=== PATIENT | female | born 1980 ===

== ENCOUNTER 2023-06-05 14:47 | Outpatient (AMB) | payer OTHER, SELFPAY ==
--- NOTE | 2023-06-05 14:51 | MHC.OFFVIS ---
Intake Vital Signs 06/05/23 15:08 Height 5 ft 3 in Weight 148 lb 2 oz BMI 26.2 BP 126/74 Blood Pressure Location Lt brachial Position Sitting Pulse 57 Intake Visit Reasons: hemorrhoidal skin lesions, 2nd opinion Intake Note: Patient is seen in office for evaluation and treatment of hemorrhoidal skin lesions, 2nd opinion. Pt c/o: had hemorrhoidectomy done September 2022 @ [facility], admits to bleeding with bm, takes stool softener for constipation with some relief, admits to straining and itching, discomfort Carriage Setter Required: Yes Carriage Setter Language: Management Developer Name: Gretta VIZCARRA Information Interpreted: non-clinical & clinical Emergency Vehicle Operations Instructor: Emergency Vehicle Operations Instructor Present Accompanied by: Self / Same As Patient Medication List - Last Reconciled 06/05/23 by Mitch España MD No Known Home Meds HPI hemorrhoidal skin lesions, 2nd opinion HPI Details 42-year-old female referred for hemorrhoid issues. She had undergone hemorrhoidectomy x3 quadrants last September, in [place]. She describes frequent swelling, and itching of residual hemorrhoids. She also sees small amounts of blood occasionally with wiping. She says that these residual hemorrhoids get in the way of hygiene after bowel movements. She occasionally has some constipation. [facility] Medical History (Updated 06/05/23 @ 15:20 by Mitch España MD) Hemorrhoids with complication Surgical History Hx of hemorrhoidectomy (09/23/22) Hx of colonoscopy Family History (Updated 06/05/23 @ 15:20 by CARMITA Klein) Maternal Aunt Breast cancer Maternal Uncle Colon cancer Paternal Aunt Breast cancer Social History Alcohol intake: current Alcohol intake frequency: holidays/special occasions only Patient Tobacco Use Status: Never used Tobacco Review of Systems Const Denies chills and Denies fever(s) Card Denies chest pain, Denies dyspnea and Denies dyspnea on exertion Resp Denies cough, Denies dyspnea and Denies dyspnea on exertion GI Reports hematochezia and Denies change in bowel habits Denies hematuria Musc Denies back pain and Denies limited range of motion Neuro Denies focal weakness and Denies convulsions Psych Denies depression and Denies mood swings Physical Exam Vital Signs: Last Vital Signs Pulse 57 06/05/23 15:08 BP 126/74 06/05/23 15:08 BMI result Body Mass Index 26.2 Const General: comfortable and no acute distress Orientation/consciousness: patient oriented x3 Neck Neck: Yes no lymphadenopathy Resp Auscultation: clear to auscultation bilaterally Cardio Rhythm: regular rhythm GI Other: Rectal exam - external hemorrhoidal column anteriorly to the left of the midline, very prominent Palpation (GI): Soft to palpation, nontender and no guarding Neuro General: patient oriented x3 Office Procedures Anoscopy She was in sandie-knife position. The anoscope was gently inserted. A full examination of the anal canal was done. Again, there was note of this hemorrhoidal column anteriorly, very prominent, mostly external with a little bit of internal component, no other lesions seen, no fissure, no induration, no blood [id number] Assessment & Plan Assessment & Plan (1) Hemorrhoids with complication: Code(s): K64.8 - Other hemorrhoids Plan: She has this large hemorrhoidal column anteriorly mostly external. She says that this causes difficulty with hygiene after bowel movements along with occasional swelling and pain. She wants to proceed with hemorrhoidectomy again. She had 3 hemorrhoidal columns removed last year in [place] I reviewed with her the technique of hemorrhoidectomy. I discussed the risks including but not limited to bleeding, infections, postop pain, as well as the benefits and alternatives. She wants to proceed. She says that she will schedule for this in September of this year. Coding Level of Care Code New Pt Level 3 (77666) Diagnoses Hemorrhoids with complication K64.8 CPT Codes Details - CPT: 73986-[id number] ([id number])
[2023-06-05 15:08] VITALS: BP 126/74; PULSE 57; BMI 26.2
== END 2023-06-05 15:19 | disposition home or self-care (01) ==
PROVIDERS: PCP Nurse Practitioner Family; Visit Provider Surgery
DX: K64.8 Other hemorrhoids (principal)
CPT/HCPCS: 46600; 99203

== ENCOUNTER → 2023-06-05 14:47 | Outpatient (BNVA) | payer OTHER, SELFPAY | PROVIDERS: PCP Nurse Practitioner Family; Visit Provider Surgery | DX: K64.8 Other hemorrhoids (principal) | CPT/HCPCS: 46600 ==

== ENCOUNTER 2023-10-06 08:59 | Day surgery (SDC) | payer OTHER, SELFPAY ==
[2023-10-04 07:18] VITALS: BMI 26.2
--- NOTE | 2023-10-05 14:16 | P.CONAN_ITS ---
Documented by User: Shauna Curry NP 10/05/23 14:16 HPI - Anesthesia Eval Consult details Narrative: 43yo F for Hemorrhoidectomy [facility] Active Problems Active Problems: All Active Problems Hemorrhoids with complication (Acute) Past Medical History Medical History (Updated 06/05/23 @ 15:20 by Mitch España MD) Hemorrhoids with complication Family History Family History (Updated 06/05/23 @ 15:20 by CARMITA Klein) Maternal Aunt Breast cancer Maternal Uncle Colon cancer Paternal Aunt Breast cancer Surgical History Surgical History (Updated 10/06/23 @ 09:28 by Antonina Simon, RN) Hx of total hysterectomy Hx of hemorrhoidectomy (09/23/22) Hx of colonoscopy Social History Social History (Updated 06/05/23 @ 15:20 by CARMITA Klein) Alcohol intake: current Alcohol intake frequency: does not drink Patient Tobacco Use Status: Never used Tobacco Tobacco use type: Smokeless Tobacco Are you DNR?: No Advance Directives: No Advance Directives Information Provided: Yes Nutrition Risks: No Nutritional Risk Meds Allergies Allergy/AdvReac Type Severity Reaction Status Date / Time No Known Allergies Allergy Verified 06/05/23 15:23 Exam Height,Weight and Vital Signs: Height 5 ft 3 in Weight 67.132 kg Assessment and Plan Assessment Anesthesia Assessment: Chart Reviewed Documented by User: Robert Castelan MD 10/06/23 10:00 [facility] Past Medical History Medical History (Updated 06/05/23 @ 15:20 by Mitch España MD) Hemorrhoids with complication Patient : No Family History Family History (Updated 06/05/23 @ 15:20 by CARMITA Klein) Maternal Aunt Breast cancer Maternal Uncle Colon cancer Paternal Aunt Breast cancer Family history of problems with anesthesia: No Surgical History Surgical History (Updated 10/06/23 @ 09:28 by Antonina Simon RN) Hx of total hysterectomy Hx of hemorrhoidectomy (09/23/22) Hx of colonoscopy History of Problems with Anesthesia: No Social History Social History (Updated 06/05/23 @ 15:20 by CARMITA Klein) Alcohol intake: current Alcohol intake frequency: does not drink Patient Tobacco Use Status: Never used Tobacco Tobacco use type: Smokeless Tobacco Are you DNR?: No Advance Directives: No Advance Directives Information Provided: Yes Nutrition Risks: No Nutritional Risk Meds Allergies Allergy/AdvReac Type Severity Reaction Status Date / Time No Known Allergies Allergy Verified 06/05/23 15:23 Exam Airway Mallampati Class: I TM Dist: >3cm Neck ROM: Full Heart: ok Lungs: ok Assessment and Plan Assessment Anesthesia Assessment: Anesthesia Plan Discussed Final Anesthetic Review Family History of Problems with Anesthesia: No History of Problems with Anesthesia: No NPO: Yes ASA Class: I Final Preanesthetic Review: No Changes in Pt Med Stat, Meds/Allgs Chart Reviewed, Consent Obtained/Reviewed and Anes Risks/Benef Reviewed Patient Risk: Low Procedure Risk: Intermediate Anesthetic Plan Anesthetic Plan: GA and Agree w/ Assess. and Plan Disposition: Standard PACU
[2023-10-06 09:30] VITALS: BP 104/68; PULSE 70; RESP 20; TEMP 36.9; O2SAT 98; BMI 26.6
--- NOTE | 2023-10-06 09:44 | MHC.SHP ---
Pre-Procedural Eval Section A - 24 Hr Update-Section A only Date of Service: 10/06/23 Section B - Complete if H&P > 30 days Chief Complaint: Other hemorrhoids Details of Present Illness: Has external hemorrhoids, with symptoms; she has had hemorrhoidectomy in [place] in the past Relevant Social History: None Present Medications: see Short Stay Collaborative assessment Medical History: No relevant PMH Allergies: Allergies Allergy/AdvReac Type Severity Reaction Status Date / Time No Known Allergies Allergy Verified 06/05/23 15:23 Review of Systems Sugical H&P ROS: Negative: Constitution, Cardiovascular, Respiratory, Neurological, Psychiatric, Hem-Onc, Allergic/Immunologic, Gastrointestinal, Genitourinary, Musculoskeletal, Integumentary, Endocrine and Eyes/Ears/Nose/Throat Exam Surgical H&P Exam: Normal: HEENT, Normal: Heart, Normal: Lungs, Normal: Extremities, Normal: Abdomen, Normal: Skin and Normal: Neurological Exam Comment: External hemorrhoids Plan Diagnosis/Plan: Unchanged I have reviewed the history and physical and performed a pertinent physical examination on my patient. No changes have occurred unless specified. Time Spent With Patient Time: Total time managing care of this patient today ____ minutes.
[2023-10-06] MEDS: Lactated Ringers 1,000 ML 50 ML IVCONT (09:48)
--- NOTE | 2023-10-06 10:43 | W.PM.OPN ---
Operative Note Operative Note Date of Service: 10/06/23 Narrative: Preop diagnosis: External hemorrhoids with bleeding Postop diagnosis: The same Procedure: Exam under anesthesia hemorrhoidectomy x2 columns Surgeon: Mitch España MD licensed occupational therapy assistant: Shad Altamirano MS 3 The patient is a 43-year-old female with note of pain and discomfort with external hemorrhoids. She had previously undergone hemorrhoidectomy in [place]. She understood the technique of hemorrhoidectomy and was aware of the risks, benefits, and alternatives She was brought to the operating room. She was placed in prone sandie-knife position under general anesthesia via laryngeal mask airway. The buttocks were retracted with wide tape laterally. The perianal area was prepped and draped in the usual sterile fashion. A surgical time-out was done. The patient received Cefotan 2 g IV preoperatively . The perianal area was infiltrated with lidocaine 1%. Examination of the anal orifice revealed a moderate-sized external hemorrhoid on the left and a small-sized external hemorrhoid on the right I inserted the Chan Mendez retractor and examined the anal canal circumferentially. There were no lesions or any large internal hemorrhoids. I applied a Garcia retractor on the external hemorrhoid on the left. I made a [id number] stitch at its pedicle using a chromic 3-0. I made an incision around this hemorrhoidal column to the perianal skin with a blade 15. I excised this external hemorrhoid with scissors. I closed the incision with running chromic 3-0 stitch. The same procedure was duplicated on the smaller hemorrhoidal column on the right side. Again this was retracted with a Garcia grasper. A [id number]-[id number] stitch was made at the pedicle and an incision was made around this hemorrhoid to the perianal skin. I excise the hemorrhoid with scissors above the sphincters and closed the incision with a running chromic 3-0 stitch Once hemostasis was confirmed, I proceeded to then infiltrated the perianal area generously with Marcaine 0.5% for postop analgesia. The procedure was completed. The patient tolerated the procedure well. There were no immediate complications. Initial and final counts of sponges and instruments were correct. Estimated blood loss about 20 cc. The patient was extubated without difficulty and transferred to the recovery room with stable vital signs.
[2023-10-06 10:58] VITALS: BP 109/54; PULSE 73; RESP 14; TEMP 36.8; O2SAT 99
[2023-10-06 11:03] VITALS: BP 124/76; PULSE 61; RESP 14; O2SAT 99
[2023-10-06 11:08] VITALS: BP 124/73; PULSE 57; RESP 16; O2SAT 99
[2023-10-06 11:15] VITALS: BP 129/78; PULSE 59; RESP 16; O2SAT 99
[2023-10-06 11:26] VITALS: TEMP 36.7
== END 2023-10-06 11:50 | disposition home or self-care (01) ==
PROVIDERS: Visit Provider Surgery
PROC: (CPT 46250; principal; 2023-10-06 11:00)
DX: K64.4 Residual hemorrhoidal skin tags (principal); K62.89 Other specified diseases of anus and rectum; Z98.890 Other specified postprocedural states; K59.00 Constipation, unspecified; Z79.899 Other long term (current) drug therapy
CPT/HCPCS: 46250; 88304; 88312; J1885; J2405; J2704; J2795; J3010

== ENCOUNTER → 2023-10-06 08:59 | Outpatient (BNV) | payer OTHER, SELFPAY | PROVIDERS: Visit Provider Surgery | DX: K64.8 Other hemorrhoids (principal) | CPT/HCPCS: 46260 ==

== ENCOUNTER 2023-10-19 09:18 | Outpatient (AMB) | payer OTHER, SELFPAY ==
--- NOTE | 2023-10-19 09:33 | MHC.OFFVIS ---
Intake Visit Reasons: s/p hemorrhoidectomy Intake Note: This patient presents for a post-op assessment status post hemorrhoidectomy. Patient c/o; reports inflammation, reports no rectal bleeding. Transport Assistant Required: No Accompanied by: Self / Same As Patient Allergies No Known Allergies Allergy (Verified 10/19/23 09:36) HPI HPI s/p hemorrhoidectomy: Details: She underwent hemorrhoidectomy x2 columns last October 06, 2023. She tolerated the procedure well. She currently denies severe pain. [facility] Medical History Hemorrhoids with complication Surgical History History of hemorrhoidectomy (~10/06/23) Hx of total hysterectomy Hx of hemorrhoidectomy (09/23/22) Hx of colonoscopy Family History Maternal Aunt Breast cancer Maternal Uncle Colon cancer Paternal Aunt Breast cancer Social History Alcohol intake: current Alcohol intake frequency: does not drink Patient Tobacco Use Status: Never used Tobacco Tobacco use type: Smokeless Tobacco Review of Systems Const Denies chills and Denies fever(s) Card Denies chest pain, Denies dyspnea and Denies dyspnea on exertion Resp Denies cough, Denies dyspnea and Denies dyspnea on exertion GI Denies hematochezia and Denies change in bowel habits Denies hematuria Musc Denies back pain and Denies limited range of motion Neuro Denies focal weakness and Denies convulsions Psych Denies depression and Denies mood swings Physical Exam Const General: comfortable and no acute distress Resp Effort & Inspection: normal respiratory effort GI Other: Rectal exam shows the hemorrhoidectomy sites to be healing well, not infected; mild residual edema of surrounding hemorrhoidal tissue Assessment & Plan Assessment & Plan (1) Hemorrhoids with complication: Code(s): K64.8 - Other hemorrhoids Category: Medical Plan: Status post hemorrhoidectomy. She is doing well overall. Her path report shows prominent anal papilla and non-necrotizing granuloma. I instructed her to continue hot Sitz baths or warm soaks. She is to avoid straining and constipation. She can otherwise follow up on a p.r.n. basis. Coding Level of Care Code Global (55683) Diagnoses Hemorrhoids with complication K64.8
== END 2023-10-19 09:40 | disposition home or self-care (01) ==
PROVIDERS: Visit Provider Surgery
DX: K64.8 Other hemorrhoids (principal)
CPT/HCPCS: 99024

== ENCOUNTER → 2023-10-19 09:18 | Outpatient (BNVA) | payer OTHER, SELFPAY | PROVIDERS: Visit Provider Surgery ==